=== PATIENT | female | born 1965 | race Caucasian/White ===

== ENCOUNTER → 2017-01-31 | Day surgery (SDC) | payer OTHER ==
[~2017-01-31] VITALS: Ht 160 cm; Wt 86.2 kg
[~2017-01-31] MED LIST: ABILIFY 5MG5 MG PO; ALPRAZOLAM1 MG PO; AMBIEN 10MG10 MG PO; CEFUROXIME250 M1 PO; CELEXA10 MG PO; CELEXA20 MG PO; DULCOLAX5 MG PO; FUROSEMIDE20 MG PO; HYDROCODONE/ACE1 TA1 PO; IBUPROFEN400 M1 PO; KEFLEX500 MG PO; KLOR-CON 1010 ME1 PO; LIPITOR10 M1 PO; LOVENOX 4040 MG/0.4 SC; MELATONIN5 M7 PO; METOLAZONE2.5 M1 PO; NARCAN4 MG NAS; NASONEX17 GM NASB; NEXIUM40 M1 PO; OXYCODONE HCL10 M2 PO; OXYCONTIN20 MG PO; PERCOCET 325 MG1 TAB PO; PERCOCET 5-3251 EACH PO; POTASSIUM CHLO20 ME2 PO; PRILOSEC OTC20 M1 PO; SPIRONOLACTONE25 M1 PO; TORSEMIDE100 M1 PO
--- NOTE | 2017-01-31 11:59 | Operative Report ---
Operative/Inv Procedure Report Surgery Date: 01/31/17 Name of Procedure: Single column internal and external hemorrhoidectomy Pre-Operative Diagnosis: Hemorrhoids Post-Operative Diagnosis: Same Estimated Blood Loss: scant Surgeon/Carpet Repairer: SHAWNEE YE MD Anesthesia: local monitored anesthesi Specimens: Hemorrhoid Operative/Procedure Note Note: After consent she is brought to the operative laid prone. She was sedated and her anus was prepped and draped. Perianal/rectal nerve block was created with a cocktail local anesthesia. Digital rectal examination was unrevealing. Rigid proctoscopy revealed an anteriorly based external hemorrhoid with internal component. There was no other significant internal hemorrhoid disease. The skin was on the external component was excised in elliptical fashion and the incision carried forth proximally. We divided the internal sphincter and dissected the hemorrhoidal tissue off of it. This was accomplished with cautery. Once we got to the extent of the internal hemorrhoid, the veins were suture ligated with 3-0 Vicryl sutures. The mucosa was then closed over the muscle with a running 3-0 chromic gut. The external portion of the resection was left open for drainage. Hemostasis was adequate. Bacitracin ointment and a sterile dressing applied. Patient tolerated procedure well CC: MARCIE CAGLE,IESHA Linares
== END ==
LOC: STS 02:08
DX: K64.8 Other hemorrhoids (principal); I10 Essential (primary) hypertension; J45.909 Unspecified asthma, uncomplicated; R01.1 Cardiac murmur, unspecified
CPT/HCPCS: 81025; J2250